=== PATIENT | female | born 1965 | race Caucasian/White ===

== ENCOUNTER 2016-08-04 11:15 | Emergency (ER) | payer BC ==
[2016-08-04 12:09] LABS: URINE APPEARANCE CLOUDY; URINE BILIRUBIN NEGATIVE (NEGATIVE); URINE BLOOD NEGATIVE (NEGATIVE); URINE COLOR YELLOW; URINE KETONE NEGATIVE (NEGATIVE); URINE LEUKOCYTE ESTERASE NEGATIVE (NEGATIVE); URINE NITRITE NEGATIVE (NEGATIVE); URINE UROBILINOGEN 0.2 E.U./dL (0.20 - 1.00)
[2016-08-04 12:23] LABS: BASO % 0.3 % (0-6); EOS % 3.8 % (0-6); GRAN % 61.4 % (47-80); HEMATOCRIT 38.1 % (35.0-47.0); HEMOGLOBIN 13.1 gm/dl (11.6-16.0); LYMPH % 23.1 % (16-45); MEAN CELL VOLUME 91.4 fl (81-97); MEAN CORPUSCULAR HEMOGLOBIN 31.4 pg (27-33); MEAN CORPUSCULAR HGB CONC 34.4 g/dl (32-36); MEAN PLATELET VOLUME 10.2 fl (7.4-10.4); MONO % 11.4 % (0-9); PLATELET COUNT 292 K/uL (130-400); RED BLOOD COUNT 4.17 M/uL (3.80-5.40); RED CELL DISTRIBUTION WIDTH 13.3 % (11.5-14.5); WHITE BLOOD COUNT W/O DIFF 6.7 K/uL (4.2-12.2)
--- NOTE | 2016-08-04 12:27 | Emergency Department Record ---
History of Present Illness - General Chief complaint: Female Urogenital Problem Stated complaint: UTI Time Seen by Provider: 08/04/16 12:01 Source: Patient Mode of Arrival: Ambulatory Limitations: No limitations - History of Present Illness Initial comments: pt states she has had symptoms of a uti since . she states she has a hx of kidney disease. she has had no fever and no vomiting. she has no dysuria but does have frequency. Onset/Timin -: Week(s) Location: Suprapubic Radiation: L flank, R flank Severity: Mild Quality: Aching Consistency: Constant Improves with: None Worsens with: Urination Associated Symptoms: Denies other symptoms - Related Data Home Medications Medication Instructions Recorded Confirmed Last Taken Aspirin [Aspir 81] 81 mg PO QD tab 12/29/15 02/02/16 1 Day Ago Atorvastatin Calcium 40 mg PO QD tab 12/29/15 02/02/16 1 Day Ago Losartan Potassium 100 mg PO QD tab 12/29/15 02/02/16 1 Day Ago Metoprolol Tartrate 100 mg PO QD tab 12/29/15 02/02/16 1 Day Ago Pantoprazole Sodium [Protonix] 40 mg PO QD tab 12/29/15 02/02/16 1 Day Ago Magnesium Oxide [Magnesium] 400 mg PO 08/04/16 Unknown Multivits-Min/Iron/FA/Lutein 1 each PO 08/04/16 Unknown [Centrum Silver Women Tablet] Previous Rx's Medication Instructions Recorded Epinephrine [Epipen] 0.3 mg IM ASDIR PRN #3 syr 02/02/16 Allergies Allergy/AdvReac Type Severity Reaction Status Date / Time Cephalosporins Allergy Unknown HIVES Unverified 02/02/16 21:09 [CEPHALOSPORINS] Penicillins [PENICILLINS] Allergy Unknown HIVES Unverified 02/02/16 21:09 azithromycin [From Zithromax] Allergy HIVES Verified 02/02/16 21:09 prednisone Allergy HIVES Verified 08/04/16 11:49 Travel Screening - Travel/Exposure Within Last 30 Days Have you traveled within the last 30 days?: Yes Location Detail:: [place] - Travel/Exposure Within Last Year Have you traveled outside the [place] in the last year?: No - Additonal Travel Details Have you been exposed to anyone with a communicable illness?: No - Travel Symptoms Symptom Screening: None Review of Systems Reviewed: No additional complaints except as noted below Constitutional: Reports: As per HPI. Denies: Chills, Fever, Malaise, Night sweats, Weakness, Weight change Eyes: Reports: As per HPI. Denies: Eye discharge, Eye pain, Photophobia, Vision change ENT: Reports: As per HPI. Denies: Congestion, Dental pain, Ear pain, Epistaxis , Hearing loss, Throat pain Respiratory: Reports: As per HPI. Denies: Cough, Dyspnea, Hemoptysis, Stridor, Wheezes Cardiovascular: Reports: As per HPI. Denies: Arrhythmia, Chest pain, Dyspnea on exertion, Edema, Murmurs, Orthopnea, Palpitations, Paroxysmal nocturnal dyspnea, Rheumatic Fever, Syncope Endocrine: Reports: As per HPI. Denies: Fatigue, Heat or cold intolerance, Polydipsia, Polyuria Gastrointestinal: Reports: As per HPI. Denies: Abdominal pain, Constipation, Diarrhea, Hematemesis, Hematochezia, Melena, Nausea, Vomiting Genitourinary: Reports: As per HPI. Denies: Abnormal menses, Discharge, Dyspareunia, Dysuria, Frequency, Hematuria, Incontinence, Retention, Urgency Musculoskeletal: Reports: As per HPI. Denies: Arthralgia, Back pain, Gout, Joint swelling, Myalgia, Neck pain Skin: Reports: As per HPI. Denies: Bruising, Change in color, Change in hair/ nails, Lesions, Pruritus, Rash Neurological: Reports: As per HPI. Denies: Abnormal gait, Confusion, Headache, Numbness, Paresthesias, Seizure, Tingling, Tremors, Vertigo, Weakness Psychiatric: Reports: As per HPI. Denies: Anxiety, Auditory hallucinations, Depression, Homicidal thoughts, Suicidal thoughts, Visual hallucinations Hematological/Lymphatic: Reports: As per HPI. Denies: Anemia, Blood Clots, Easy bleeding, Easy bruising, Swollen glands Past Medical History - SOCIAL HISTORY Smoking Status: Never smoker Alcohol Use: Rare, Occassional Drug Use: None - RESPIRATORY Hx Respiratory Disorders: No - CARDIOVASCULAR Hx Cardio Disorders: Yes Hx Hypertension: Yes - NEURO Hx Neuro Disorders: No - GI Hx GI Disorders: Yes Hx Reflux: Yes - Hx Genitourinary Disorders: Yes Hx Renal Disease: Yes - ENDOCRINE Hx Endocrine Disorders: No - MUSCULOSKELETAL Hx Musculoskeletal Disorders: No - PSYCH Hx Psych Problems: No - HEMATOLOGY/ONCOLOGY Hx Hematology/Oncology Disorders: Yes Hx Cancer: Yes (Skin) Hx Chemotherapy: No Hx Radiation Therapy: No Family Medical History Any Significant Family History?: Yes Hx Heart Disease: Father Hx Stroke: Father Physical Exam - General General Appearance: Alert, Oriented x3, Cooperative, Mild distress - Head Head exam: Normal inspection - Eye Eye exam: Normal appearance, PERRL, EOMI Pupils: Normal accommodation - ENT ENT exam: Normal exam, Mucous membranes moist, Normal external ear exam, Normal orophraynx Ear exam: Normal external inspection. negative: External canal tenderness Nasal Exam: Normal inspection. negative: Discharge, Sinus tenderness Mouth exam: Normal external inspection, Tongue normal Teeth exam: Normal inspection. negative: Dental caries Throat exam: Normal inspection. negative: Tonsillar erythema, Tonsillar exudate - Neck Neck exam: Normal inspection, Full ROM. negative: Tenderness - Respiratory Respiratory exam: Normal lung sounds bilaterally. negative: Respiratory distress - Cardiovascular Cardiovascular Exam: Regular rate, Normal rhythm, Normal heart sounds - GI/Abdominal GI/Abdominal exam: Soft, Normal bowel sounds. negative: Tenderness - Rectal Rectal exam: Deferred - exam: Deferred - Extremities Extremities exam: Normal inspection, Full ROM, Normal capillary refill. negative: Tenderness - Back Back exam: Reports: Normal inspection, Full ROM. Denies: Muscle spasm, Rash noted, Tenderness - Neurological Neurological exam: Alert, CN II-XII intact, Normal gait, Oriented X3 - Psychiatric Psychiatric exam: Normal affect, Normal mood - Skin Skin exam: Dry, Intact, Normal color, Warm Course Vital Signs 08/04/16 11:33 Temperature 98.1 F Pulse Rate 83 Respiratory 16 Rate Blood Pressure 155/90 Pulse Ox 98 Medical Decision Making - Management Options MDM Management: No Additional Work-up Planned - Data Complexity MDM Data: Labs Ordered and/or Reviewed - Lab Data Result diagrams: 08/04/16 12:15 08/04/16 12:15 Lab Results 08/04/16 Range/Units 12:07 Urine Color Yellow Urine Appearance Cloudy Urine pH 6.0 (5.0-8.0) Ur Specific [place] 1.025 (1.002-1.030) Urine Protein 30 mg/dl H (NEGATIVE) Urine Glucose (UA) 100 mg/dl H (NEGATIVE) Urine Ketones Negative (NEGATIVE) Urine Blood Negative (NEGATIVE) Urine Nitrite Negative (NEGATIVE) Urine Bilirubin Negative (NEGATIVE) Urine Urobilinogen 0.2 (0.20 - 1.00) E.U./dL Ur Leukocyte Esterase Negative (NEGATIVE) Disposition Disposition: Discharge Clinical Impression: Renal Insufficiency, Glycosuria Proteinuria Qualifiers: Proteinuria type: unspecified Qualified Code(s): R80.9 - Proteinuria, unspecified Disposition: Home, Self-Care Condition: (1) Good Instructions: Chronic Kidney Disease (ED) Additional Instructions: follow up with family doctor and with electronic warfare officer. return sooner if worse. Forms: Patient Portal Access
[2016-08-04 12:33] LABS: ANION GAP 14.4 (7-16); CARBON DIOXIDE 24.6 mmol/L (22-30); CREATININE 1.3 mg/dL (0.52-1.04)
== END 2016-08-04 13:26 | disposition home or self-care (01) ==
LOC: ER 11:15
DX: I12.9 Hypertensive chronic kidney disease with stage 1 through stage 4 chronic kidney disease, or unspecified chronic kidney disease (principal); N18.9 Chronic kidney disease, unspecified; R81 Glycosuria; R80.9 Proteinuria, unspecified
CPT/HCPCS: 80048; 81003; 85025; 99283

== ENCOUNTER 2016-08-12 21:20 | Emergency (ER) | payer BC ==
[2016-08-12] MEDS ORDERED: HYDROCODONE/APAP 5/325MG TABLET PO ONE (21:49)
--- NOTE | 2016-08-12 21:54 | Emergency Department Record ---
History of Present Illness - General Chief complaint: Lower Extremity Pain Stated complaint: L HIP PAIN Time Seen by Provider: 08/12/16 21:49 Source: Patient, Family Mode of Arrival: Ambulatory Limitations: No limitations - History of Present Illness Initial comments: 50 yo female presents with left lateral hip pain for about one hour. She was exercising and felt a pop in the lateral hip. She has had pain since then. She has pain with weight bearing. No deformity. She is able to bear weight but with discomfort. No prior hip disease. MD Complaint: Extremity pain, Joint pain Onset/Timin -: Hour(s) Location: Left, Other History of Same: No Severity scale (1-10): 5 Quality: Sharp Consistency: Constant Improves with: Rest Worsens with: Exertion, Palpation, Walking, Weight bearing Associated Symptoms: Denies other symptoms - Related Data Home Medications Medication Instructions Recorded Confirmed Last Taken Aspirin [Aspir 81] 81 mg PO QD tab 12/29/15 08/12/16 08/12/16 Atorvastatin Calcium 40 mg PO QD tab 12/29/15 08/12/16 08/12/16 Losartan Potassium 100 mg PO QD tab 12/29/15 08/12/16 08/12/16 Metoprolol Tartrate 100 mg PO QD tab 12/29/15 08/12/16 08/12/16 Pantoprazole Sodium [Protonix] 40 mg PO QD tab 12/29/15 08/12/16 08/12/16 Magnesium Oxide [Magnesium] 400 mg PO DAILY 08/04/16 08/12/16 08/12/16 Multivits-Min/Iron/FA/Lutein 1 each PO DAILY 08/04/16 08/12/16 08/12/16 [Centrum Silver Women Tablet] Previous Rx's Medication Instructions Recorded Epinephrine [Epipen] 0.3 mg IM ASDIR PRN #3 syr 02/02/16 Hydrocodone/Acetaminophen [Cooter 1 tab PO Q6H PRN #15 tab 08/12/16 5mg/325mg] Allergies Allergy/AdvReac Type Severity Reaction Status Date / Time Cephalosporins Allergy Unknown HIVES Verified 08/12/16 21:34 [CEPHALOSPORINS] Penicillins [PENICILLINS] Allergy Unknown HIVES Verified 08/12/16 21:34 azithromycin [From Zithromax] Allergy HIVES Verified 02/02/16 21:09 prednisone Allergy HIVES Verified 08/04/16 11:49 Travel Screening - Travel/Exposure Within Last 30 Days Have you traveled within the last 30 days?: No - Travel Symptoms Symptom Screening: None Review of Systems Constitutional: Denies: Chills, Fever Eyes: Denies: Eye discharge ENT: Denies: Congestion, Throat pain Respiratory: Denies: Cough Cardiovascular: Denies: Chest pain, Palpitations Endocrine: Denies: Fatigue Gastrointestinal: Denies: Abdominal pain, Diarrhea, Nausea, Vomiting Genitourinary: Denies: Dysuria Musculoskeletal: Reports: Arthralgia, Myalgia. Denies: Back pain, Joint swelling, Neck pain Skin: Denies: Bruising, Change in color, Rash Neurological: Denies: Headache, Vertigo Psychiatric: Denies: Anxiety Hematological/Lymphatic: Denies: Blood Clots, Easy bleeding, Easy bruising Past Medical History - SOCIAL HISTORY Smoking Status: Never smoker - RESPIRATORY Hx Respiratory Disorders: No - CARDIOVASCULAR Hx Cardio Disorders: Yes Hx Hypertension: Yes Comment:: high cholesterol - NEURO Hx Neuro Disorders: No - GI Hx GI Disorders: Yes Hx Reflux: Yes - Hx Genitourinary Disorders: Yes Hx Renal Disease: Yes - ENDOCRINE Hx Endocrine Disorders: No Hx Diabetes: No - MUSCULOSKELETAL Hx Musculoskeletal Disorders: No - PSYCH Hx Psych Problems: No - HEMATOLOGY/ONCOLOGY Hx Hematology/Oncology Disorders: Yes Hx Cancer: Yes (Skin) Hx Chemotherapy: No Hx Radiation Therapy: No Family Medical History Any Significant Family History?: Yes Hx Heart Disease: Father Hx Stroke: Father Physical Exam - General General Appearance: Alert, Oriented x3, Cooperative, No acute distress Limitations: No limitations - Head Head exam: Atraumatic, Normal inspection - Eye Eye exam: Normal appearance - ENT ENT exam: Normal exam - Neck Neck exam: Normal inspection - Cardiovascular Cardiovascular Exam: Regular rate, Normal rhythm, Normal heart sounds - GI/Abdominal GI/Abdominal exam: Soft. negative: Tenderness - Rectal Rectal exam: Deferred - exam: Deferred - Extremities Extremities exam: Normal inspection, Normal capillary refill, Tenderness. negative: Calf tenderness, Full ROM, Joint swelling, Pedal edema Image of Full Body: 1 - tender lateral thigh/upper leg, normal inspection, no pain with log roll, no knee tenderness, no groin mass or tenderness, pain with flexion and hip abduction - Back Back exam: Reports: Normal inspection, Full ROM. Denies: Muscle spasm, Rash noted, Tenderness - Neurological Neurological exam: Abnormal gait, Alert, Oriented X3. negative: Motor sensory deficit - Psychiatric Psychiatric exam: Normal affect, Normal mood. negative: Agitated, Anxious - Skin Skin exam: Dry, Intact, Normal color, Warm. negative: Erythema Course Vital Signs 08/12/16 21:28 Temperature 98.4 F Pulse Rate [ 60 Pulse Ox Probe] Respiratory 16 Rate Blood Pressure 125/68 [Left Arm] Pulse Ox 96 - Reevaluation(s) Reevaluation #1: The patient was seen and examines XR ordered 08/12/16 21:53 Reevaluation #2: The XR is negative for any acute process DC home with support care, crutches, NWB 08/12/16 22:24 Disposition Disposition: Discharge Clinical Impression: Strain of left hip Qualifiers: Encounter type: initial encounter Qualified Code(s): S76.012A - Strain of muscle, fascia and tendon of left hip, initial encounter Disposition: Home, Self-Care Condition: (1) Good Instructions: Hip Sprain (ED) Additional Instructions: use the crutches to prevent weight bearing or crutches ice the sore area follow up with your doctor this week Prescriptions: Hydrocodone/Acetaminophen [Cooter 5mg/325mg] 1 tab PO Q6H PRN #15 tab PRN Reason: Pain - General Referrals: ASHLEY TUCKER [DOCTOR OF OSTEOPATH] - [facility] [Provider Group] Forms: Patient Portal Access Time of Disposition: 22:25
--- NOTE | 2016-08-15 07:39 | RADIOLOGY REPORT ---
EXAM: LEFT HIP HISTORY: FELT CRACK IN LEFT HIP WHILE EXERCISING, NOW WITH PAIN. TECHNIQUE: An AP view of the pelvis was obtained as well as AP and frog leg lateral views of the left hip. Comparison: CT of the abdomen and pelvis with contrast dated 07/27/13. Encounter: Initial. FINDINGS: There is normal bone mineralization. No acute fracture, dislocation , or destructive bone lesion is seen. The articular relations are grossly maintained. No periarticular soft tissue abnormality is seen. A few small round calcifications are scattered within the lower pelvis, likely vascular in origin. IMPRESSION: NO ACUTE OSSEOUS ABNORMALITY IDENTIFIED. JOB NUMBER: [id number] [facility]
== END 2016-08-12 22:49 | disposition home or self-care (01) ==
LOC: ER 21:20
DX: S76.012A Strain of muscle, fascia and tendon of left hip, initial encounter (principal); X50.9XXA Other and unspecified overexertion or strenuous movements or postures, initial encounter; Y93.B9 Activity, other involving muscle strengthening exercises
CPT/HCPCS: 99283

== ENCOUNTER 2018-09-21 17:54 | Emergency (ER) | payer BC ==
--- NOTE | 2018-09-21 18:23 | Emergency Department Record ---
History of Present Illness - General Chief complaint: Cold Stated complaint: CHEST CONGESTION,JOSE DAVID,COUGH Time Seen by Provider: 09/21/18 18:10 Source: Patient Mode of Arrival: Ambulatory Limitations: No limitations - History of Present Illness Initial comments: The patient is here due to a 2 month hx of cough, congestion and sputum production intermittently. She denies any fever, chills, CP, SOB or JOSE DAVID. The patient was in the [facility] about 3 weeks ago for the same issues and had a neg CXR and was treated with cough medicines and an inhaller. Due to not being better she is back for recheck. complaint: Other Onset/Timin -: Month(s) Consistency: Constant Improves with: None Worsens with: Other Associated Symptoms: Cough - Related Data Previous Rx's Medication Instructions Recorded Epinephrine [Epipen] 0.3 mg IM ASDIR PRN #3 syr 02/02/16 Albuterol Sulfate [Proair Hfa] 2 puff IH QID PRN #1 inhaler 09/21/18 Doxycycline Monohydrate [Mondoxyne 100 mg PO BID 7 Days #14 capsule 09/21/18 Nl] Allergies Allergy/AdvReac Type Severity Reaction Status Date / Time Cephalosporins Allergy Unknown HIVES Verified 09/21/18 18:03 [CEPHALOSPORINS] Penicillins [PENICILLINS] Allergy Unknown HIVES Verified 09/21/18 18:03 azithromycin [From Zithromax] Allergy HIVES Verified 09/21/18 18:03 bee venom protein (honey bee) Allergy HIVES Verified 09/21/18 18:03 influenza virus vaccine ts Allergy ANAPHYLAXIS Verified 09/21/18 18:03 [id number] (36 mos,up) [From Fluarix] prednisone Allergy HIVES Verified 09/21/18 18:03 Travel Screening - Travel/Exposure Within Last 30 Days Have you traveled within the last 30 days?: No Review of Systems Constitutional: Reports: Malaise. Denies: Chills, Fever Eyes: Denies: Eye discharge ENT: Reports: Congestion Respiratory: Reports: Cough. Denies: Dyspnea, Hemoptysis, Stridor, Wheezes Cardiovascular: Denies: Chest pain Past Medical History - SOCIAL HISTORY Smoking Status: Never smoker - RESPIRATORY Hx Respiratory Disorders: No - CARDIOVASCULAR Hx Cardio Disorders: Yes Hx Hypertension: Yes Comment:: high cholesterol - NEURO Hx Neuro Disorders: No - GI Hx GI Disorders: Yes Hx Reflux: Yes - Hx Genitourinary Disorders: Yes Hx Renal Disease: Yes - ENDOCRINE Hx Endocrine Disorders: No Hx Diabetes: No - MUSCULOSKELETAL Hx Musculoskeletal Disorders: No - PSYCH Hx Psych Problems: No - HEMATOLOGY/ONCOLOGY Hx Hematology/Oncology Disorders: Yes Hx Cancer: Yes (Skin) Hx Chemotherapy: No Hx Radiation Therapy: No Family Medical History Any Significant Family History?: Yes Hx Heart Disease: Father Hx Stroke: Father Physical Exam - General General Appearance: Alert, Oriented x3, Cooperative, No acute distress - Head Head exam: Atraumatic, Normocephalic, Normal inspection - Eye Eye exam: Normal appearance, PERRL - ENT Throat exam: Normal inspection. negative: Tonsillar erythema, Tonsillar exudate - Neck Neck exam: Normal inspection, Full ROM. negative: Lymphadenopathy, Tenderness - Respiratory Respiratory exam: Normal lung sounds bilaterally. negative: Accessory muscle use, Chest wall tenderness, Respiratory distress, Rhonchi, Stridor, Wheezes - Cardiovascular Cardiovascular Exam: Regular rate, Normal rhythm, Normal heart sounds. negative : Diastolic murmur, Systolic murmur - GI/Abdominal GI/Abdominal exam: Soft, Normal bowel sounds. negative: Tenderness - Extremities Extremities exam: Normal inspection, Full ROM, Normal capillary refill. negative: Tenderness - Neurological Neurological exam: Alert. negative: Motor sensory deficit Course Vital Signs 09/21/18 17:58 Temperature 98.1 F Pulse Rate 74 Respiratory 18 Rate Blood Pressure 155/88 Pulse Ox 97 - Reevaluation(s) Reevaluation #1: I did discuss the issues with the patient. She clearly needs an oral Abx that covers atypical lung infections at this time. Due to the patient having no pain , SOB, hypoxia or fever and having clear lungs I do not feel the need to recheck the CXR. The patient is to take the oral Abx and continue her inhaller and to see her PCP next week for recheck if not better. 09/21/18 18:27 Disposition Disposition: Discharge Clinical Impression: URI, acute Disposition: Home, Self-Care Condition: (2) Stable Instructions: Upper Respiratory Infection (ED) Additional Instructions: Please continue your home inhaller and take the Doxycycline as directed. Please see your family doctor for recheck if not better later this week. Return to the ER for any worsening cough, or any fever, pain, or shortness of breath. Prescriptions: Albuterol Sulfate [Proair Hfa] 2 puff IH QID PRN #1 inhaler PRN Reason: Cough And Difficulty Breathing Doxycycline Monohydrate [Mondoxyne Nl] 100 mg PO BID 7 Days #14 capsule Forms: Patient Portal Access Time of Disposition: 18:23 Quality - Quality Measures Quality Measures: N/A - Blood Pressure Screening View Details: Yes Does Patient Have Any of the Following: No Blood Pressure Classification: Pre-Hypertensive BP Reading Systolic Measurement: 155 Diastolic Measurement: 88 Screening for High Blood Pressure: < Pre-Hypertensive BP, F/U Documented > [ [id number]] Pre-Hypertensive Follow-up Interventions: Referral to alternative/primary care provider.
== END 2018-09-21 18:31 | disposition home or self-care (01) ==
LOC: ER 17:54
DX: J06.9 Acute upper respiratory infection, unspecified (principal); R05 Cough; I10 Essential (primary) hypertension
CPT/HCPCS: 99282

== ENCOUNTER 2019-04-08 08:42 | Day surgery (SDC) | payer BC ==
[2019-04-08] MEDS ORDERED: LIDOCAINE 2% MDV (20MG/ML) 20ML VIAL IV ONE (08:43)
[2019-04-08] MEDS ORDERED: PROPOFOL 10 MG/ML VIAL IV ONE (08:43)
--- NOTE | 2019-04-09 08:10 | Operative Note ---
OPERATION: COLONOSCOPY. PREOPERATIVE DIAGNOSIS: Personal history of colon polyps. POSTOPERATIVE DIAGNOSIS: Normal exam. PREPARATION QUALITY: Good to excellent. ESTIMATED BLOOD LOSS: None. SPECIMENS: None. COMPLICATIONS: None apparent. PROCEDURE: After informed consent was obtained from the patient, she was placed in the left lateral decubitus position in the endoscopy suite, sedated and monitored by the department of anesthesia. Digital rectal examination was unremarkable. A well-lubricated [id number] colonoscope was inserted into the rectum and advanced to the cecum. Preparation quality was good to excellent. The cecum, cecal bulb, ileocecal valve, appendiceal orifice, ascending colon, transverse colon, descending colon, sigmoid colon, and rectum were free of inflammatory changes, mass lesions, or polyps. Forward and J-turn views of the rectum and anorectum were unremarkable. The endoscope was straightened, the rectal ampulla deflated, and the endoscope was removed. RECOMMENDATIONS: I would suggest the patient resume her medications and diet. I did suggest she consider switching to Pepcid 40 mg daily. I would recommend a repeat exam in 5 years based on her personal history of apparent colon polyps. As always, thank you for allowing me to participate in the healthcare of your patients. JEZ
== END 2019-04-08 10:20 | disposition home or self-care (01) ==
LOC: HOP 08:42
PROVIDERS: ATTEND Internal Medicine Gastroenterology
DX: Z12.11 Encounter for screening for malignant neoplasm of colon (principal); Z86.010 Personal history of colon polyps; I10 Essential (primary) hypertension; K21.9 Gastro-esophageal reflux disease without esophagitis
CPT/HCPCS: 00812; G0105